=== PATIENT | male | born 1970 | race Caucasian/White ===

== ENCOUNTER 2018-12-07 10:26 | Outpatient (CLI) | payer OTHER ==
[~2018-12-07 10:26] MED LIST: LANTUS100 U/ML; PROTONIX20 MG
== END 2018-12-07 11:00 | disposition home or self-care (01) ==
LOC: RAD 10:26
DX: M75.32 Calcific tendinitis of left shoulder (principal)

== ENCOUNTER 2021-06-13 11:02 | Outpatient (CLI) | payer OTHER | END 2021-06-13 11:12 | disposition home or self-care (01) | LOC: RAD 11:02 | DX: J18.9 Pneumonia, unspecified organism (principal); J01.90 Acute sinusitis, unspecified ==